=== PATIENT | male | born 1935 | race Caucasian/White ===

== ENCOUNTER 2018-08-11 09:03 | Emergency (ER) | payer OTHER, MEDICARE ==
--- NOTE | 2018-08-11 09:59 | EDM.PDOC ---
ED HPI GENERAL MEDICAL PROBLEM - General Chief Complaint: Cardiovascular Problem Stated Complaint: HIGH BLOOD PRESSURE Time Seen by Provider: 08/11/18 09:12 Source of Information: Reports: Patient, Family (), RN Notes Reviewed History Limitations: Reports: No Limitations - History of Present Illness INITIAL COMMENTS - FREE TEXT/NARRATIVE: The patient is concerned about his blood pressure. Ordinarily, his blood pressure is well controlled, in the 120s, however, he found his blood pressure to be elevated this morning around 190/89. He states that he checks his blood pressure most mornings, and sometimes up to 3 times a day. He has a history of hypertension, but is compliant with his antihypertensive medications. The patient acknowledges that this morning he was coughing and had a runny nose. He reports, not quite dizziness, but a sense of disequilibrium, with some sinus congestion. No recent fever. He denies having any pain, including a headache. No blurry vision. No neuro symptoms, such as tingling, numbness, or weakness. No recent chest pain or palpitations. He has had dyspnea on exertion for years, but no dyspnea at rest. No recent abdominal pain. No recent constipation, diarrhea, or urinary symptoms, although he does have a slow urinary stream due to BPH. Here in the ED, the patient's initial blood pressure was 198/82, however, it dropped as low as 173/76 during my interview, without treatment. [facility] - Related Data Allergies Allergy/AdvReac Type Severity Reaction Status Date / Time No Known Allergies Allergy Verified 08/11/18 09:13 Home Meds: Home Meds Carvedilol 12.5 mg PO DAILY 08/14/15 [History] Clopidogrel [Plavix] 75 mg PO DAILY 08/14/15 [History] Isosorbide Mononitrate [Isosorbide Mononitrate ER] 60 mg PO DAILY 08/14/15 [ History] hydroCHLOROthiazide [Hydrochlorothiazide] 12.5 mg PO DAILY 08/14/15 [History] Acetaminophen [Acetaminophen Extra Strength] 500 mg PO Q6H PRN 08/11/18 [History ] atorvaSTATin Calcium [Atorvastatin Calcium] 20 mg PO BEDTIME 08/11/18 [History] Past Medical History Cardiovascular History: Reports: Aneurysm (AAA, s/p aorto-iliac graft), CAD, High Cholesterol, Hypertension Gastrointestinal History: Reports: GERD Genitourinary History: Reports: BPH Musculoskeletal History: Reports: Arthritis, Fracture (mandible, left clavicle) Oncologic (Cancer) History: Reports: Basal Cell Carcinoma - Past Surgical History HEENT Surgical History: Reports: Tonsillectomy, Other (See Below) (Mandible wiring. Bilateral blepharoptosis surgery.) Cardiovascular Surgical History: Reports: Carotid Stents (x 1), Vascular Surgery (Aortoiliac graft for AAA) GI Surgical History: Reports: Hernia, Abdominal (paraumbilical), Hernia, Inguinal (bilateral) Social & Family History - Tobacco Use Years of Tobacco use: 44 Packs/Tins Daily: 2 Month/Year Tobacco Last Used: Quit 1988 - Caffeine Use Caffeine Use: Reports: Coffee - Alcohol Use Alcohol Use History: No Date/Time of Last Drink Comment: Quit drinking 1988 - Recreational Drug Use Recreational Drug Use: No - Living Situation & Occupation Living situation: Reports: , with Spouse Occupation: Retired ED ROS GENERAL - Review of Systems Review Of Systems: ROS reveals no pertinent complaints other than HPI. ED EXAM, GENERAL - Physical Exam Exam: See Below Exam Limited By: No Limitations General Appearance: Alert, WD/WN, No Apparent Distress Eye Exam: Bilateral Eye: EOMI, Normal Inspection Ears: Normal External Exam, Hearing Loss Nose: Normal Inspection, Normal Mucosa, No Blood Throat/Mouth: Normal Inspection, Normal Lips, Normal Voice, No Airway Compromise Head: Atraumatic, Normocephalic Neck: Normal Inspection, Full Range of Motion Respiratory/Chest: No Respiratory Distress, Lungs Clear, Normal Breath Sounds, No Accessory Muscle Use Cardiovascular: Normal Peripheral Pulses, Regular Rate, Rhythm, No Gallop, No JVD, No Murmur, No Rub Peripheral Pulses: 4+: Radial (L), Radial (R) GI/Abdominal: Normal Bowel Sounds, Soft, Non-Tender, No Organomegaly, No Distention, No Abnormal Bruit, No Mass (Male) Exam: Deferred Rectal (Males) Exam: Deferred Back Exam: Normal Inspection, Full Range of Motion, NT Extremities: Normal Inspection, Normal Range of Motion, Normal Capillary Refill Neurological: Alert, Oriented, CN II-XII Intact, Normal Cognition, No Motor/ Sensory Deficits Psychiatric: Normal Affect Skin Exam: Warm, Dry, Intact, Normal Color, No Rash Course - Vital Signs Last Recorded V/S: Last Vital Signs Temp 36.4 C 08/11/18 09:09 Pulse 65 08/11/18 10:15 Resp 16 08/11/18 10:15 BP 171/80 H 08/11/18 10:15 Pulse Ox 95 08/11/18 10:15 - Re-Assessments/Exams Free Text/Narrative Re-Assessment/Exam: 08/11/18 09:59 Without treatment, the patient's blood pressure has decreased to 173/76. He has no abnormal neurologic findings, and no emergent treatment of his blood pressure is indicated. The concept of hypertension and how to properly measure it was discussed at length with the patient and his . The patient's blood pressure is ordinarily well controlled, however, he has had spuriously elevated blood pressure today, associated with a (likely) URI. I suspect that the patient's dizziness is due to ethmoid sinusitis. A nasal decongestant spray is an option, however, it may cause more problems than it solves. With respect to the patient's epistaxis, I found no obvious visible vessels, but based on his history, his nosebleeds are anterior/venous. I explained to him how to treat epistaxis, and also recommended that he apply a thin smear of Vaseline petroleum jelly on each side of his nasal septum, especially at bedtime. Departure - Departure Time of Disposition: 10:02 Disposition: Home, Self-Care 01 Condition: Good Clinical Impression: Elevated blood pressure reading Instructions: Hypertension, Atin-[id number] Referrals: Claudine Bhandari MD [Primary Care Provider] - Forms: ED Department Discharge Additional Instructions: You were seen in the emergency room for a concern about elevated blood pressure. Without treatment, your blood pressure decreased to 173/76, well below a level that would require emergency medical treatment. As discussed, current guidelines recommend that you only check your blood pressure 2-3 times a week. It is important that you measure your blood pressure only under restful conditions, meaning that you are sitting quietly for at least 5, and preferably 15 minutes, you are not in pain, you are not sick, and you are not anxious. Write the numbers down in a log, and show the log to your doctor when you see her. She can then determine if any changes in your blood pressure medications are needed. As discussed, if you get a nosebleed, sit upright, tilt your head slightly forward, and pinch your nostrils tightly for 10-15 minutes. Do not stuff something up your nose. If this does not stop your nosebleed, please return to the ER for evaluation. As discussed, we also recommend that you apply a thin smear of Vaseline petroleum jelly to the middle parts of each nostril, especially at bedtime. If any other problems, please do not hesitate to return to the ER.
[2018-08-11 10:19] VITALS: BP 171/80
== END 2018-08-11 10:17 | disposition home or self-care (01) ==
LOC: JD.ED 09:03
DX: I10 Essential (primary) hypertension (principal); Z79.899 Other long term (current) drug therapy; Z87.891 Personal history of nicotine dependence
CPT/HCPCS: 99283

== ENCOUNTER 2019-01-14 09:28 | Emergency (ER) | payer OTHER, MEDICARE ==
[2019-01-14] MEDS ORDERED: Sodium Chloride 0.9% 10 ML Syringe FLUSH PRN (09:42)
[2019-01-14 09:50] VITALS: BP 134/74
--- NOTE | 2019-01-14 10:06 | CT ---
Head CT Technique: Multiple axial sections through the brain were obtained. Intravenous contrast was not utilized. Comparison: No prior intracranial imaging is seen. Findings: Areas of edema are noted within the left side of the brain. Findings could represent cytotoxic edema from intracranial metastatic disease. There is diminished density noted within the subcortical and periventricular white matter which is compatible with small vessel ischemic demyelination change. Effacement of the lateral left ventricle is noted. Mild midline shift is seen by about 4.4 mm. No intracranial hemorrhage is seen. Bone window settings were reviewed which show the visualized sinuses to appear clear. Mild mucosal thickening is seen within the inferior left mastoid sinus which is most likely incidental. No acute calvarial abnormality is seen. Impression: 1. Areas of edema within the left side of the brain which are suspicious for cytotoxic edema from intracranial metastasis. Contrast-enhanced MRI would be helpful to confirm. 2. Findings cause midline shift and effacement of the lateral left ventricle. 3. Small vessel ischemic demyelination change is also noted. Diagnostic code #9
--- NOTE | 2019-01-14 10:27 | CR ---
Chest: Portable view of the chest was obtained. Comparison: No prior chest x-ray. Heart size is normal. Tortuous thoracic aorta is seen with atherosclerotic calcification. Aortic stent is noted within the abdomen. Lungs are clear with no acute parenchymal change. Degenerative change is noted within both shoulders. Scoliosis is noted within the spine. Impression: 1. Incidental findings. Nothing acute is appreciated. Diagnostic code #2
--- NOTE | 2019-01-14 10:44 | EDM.PDOC ---
ED HPI GENERAL MEDICAL PROBLEM - General Chief Complaint: Neuro Symptoms/Deficits Stated Complaint: STROKE SYMPTOMS Time Seen by Provider: 01/14/19 09:42 Source of Information: Reports: Family History Limitations: Reports: Altered Mental Status - History of Present Illness INITIAL COMMENTS - FREE TEXT/NARRATIVE: The patient presents with his and son for trouble walking, talking and eating. This has been an ongoing problem since October and maybe before that. His says that he has gotten much worse the past 3 days. He can say a few words but he has some slurred speech. He needs 2 to 3 people to help him walk anywhere. He is having trouble swallowing and his has to mash up his food. He is incontinent of stool and urine at times. His thinks he is having TIAs. She noticed some problems before October and brought him to his doctor. Nothing was really found at that time and he got progressively worse. He refused to go back to see the doctor. He has right sided facial droop. His says that his right arm and leg are more weak then the left arm and leg at times. He has a cough. He has no fever, chills, chest pain, shortness of breath, abdominal pain, nausea or vomiting. Onset: Gradual Duration: Week(s): (Since October) Improves with: Reports: None Worsens with: Reports: None Associated Symptoms: Reports: Cough. Denies: Chest Pain, Fever/Chills, Headaches, Nausea/Vomiting, Shortness of Breath Generalized Pain Score (Numeric/FACES): 4 - Related Data Allergies Allergy/AdvReac Type Severity Reaction Status Date / Time No Known Allergies Allergy Verified 01/14/19 09:50 Home Meds: Home Meds Carvedilol 12.5 mg PO DAILY 08/14/15 [History] Clopidogrel [Plavix] 75 mg PO DAILY 08/14/15 [History] Isosorbide Mononitrate [Isosorbide Mononitrate ER] 60 mg PO DAILY 08/14/15 [ History] hydroCHLOROthiazide [Hydrochlorothiazide] 12.5 mg PO DAILY 08/14/15 [History] Acetaminophen [Acetaminophen Extra Strength] 500 mg PO Q6H PRN 08/11/18 [History ] atorvaSTATin Calcium [Atorvastatin Calcium] 20 mg PO BEDTIME 08/11/18 [History] Past Medical History Cardiovascular History: Reports: Aneurysm, CAD, High Cholesterol, Hypertension Gastrointestinal History: Reports: GERD Genitourinary History: Reports: BPH Musculoskeletal History: Reports: Arthritis, Fracture Oncologic (Cancer) History: Reports: Basal Cell Carcinoma - Past Surgical History HEENT Surgical History: Reports: Tonsillectomy, Other (See Below) Cardiovascular Surgical History: Reports: Carotid Stents, Vascular Surgery GI Surgical History: Reports: Hernia, Abdominal, Hernia, Inguinal Social & Family History - Tobacco Use Smoking Status *Q: Former Smoker Used Tobacco, but Quit: Yes Month/Year Tobacco Last Used: unknown - Caffeine Use Caffeine Use: Reports: Coffee - Living Situation & Occupation Living situation: Reports: , with Spouse Occupation: Retired ED ROS GENERAL - Review of Systems Review Of Systems: See Below Constitutional: Reports: No Symptoms HEENT: Reports: No Symptoms Respiratory: Reports: No Symptoms Cardiovascular: Reports: No Symptoms Endocrine: Reports: No Symptoms GI/Abdominal: Reports: No Symptoms : Reports: No Symptoms Musculoskeletal: Reports: No Symptoms Neurological: Reports: Weakness, Other (Trouble talking). Denies: Headache ED EXAM, NEURO - Physical Exam Exam: See Below Exam Limited By: Altered Mental Status General Appearance: Alert, No Apparent Distress Ears: Normal External Exam Nose: Normal Inspection Throat/Mouth: Normal Inspection Head Exam: Atraumatic, Normocephalic Neck: Normal Inspection Respiratory/Chest: No Respiratory Distress, Rhonchi (Mild) Cardiovascular: Regular Rate, Rhythm, No Edema, No Murmur GI/Abdominal: Soft, Non-Tender, No Organomegaly, No Mass Neurological: Alert, Other (Slurred speech and he does not make any sense when he speaks. He has right sided facial droop. He has generalized weakness and he cannot follow some commands.) Back Exam: Normal Inspection Extremities: Normal Inspection EKG INTERPRETATION EKG Date: 01/14/19 Time: 10:10 Rhythm: NSR Rate (Beats/Min): 96 [place]: Normal P-Wave: Present QRS: Normal ST-T: Normal QT: Normal Course - Vital Signs Last Recorded V/S: Last Vital Signs Temp 97.2 F 01/14/19 09:42 Pulse 78 01/14/19 09:42 Resp 16 01/14/19 09:42 BP 134/74 01/14/19 09:42 Pulse Ox 95 01/14/19 09:42 - Orders/Labs/Meds Orders: Active Orders 24 hr Category Date Time Status Cardiac Monitoring [RC] . DIRECTED Care 01/14/19 09:42 Active EKG Documentation Completion [RC] STAT Care 01/14/19 09:43 Active Peripheral IV Care [RC] . DIRECTED Care 01/14/19 09:42 Active UA W/MICROSCOPIC [URIN] Stat Lab 01/14/19 09:42 Ordered Sodium Chloride 0.9% [Saline Flush] Med 01/14/19 11:00 Active 10 ml FLUSH ASDIRECTED Sodium Chloride 0.9% [Saline Flush] Med 01/14/19 09:42 Active 10 ml FLUSH ASDIRECTED PRN Peripheral IV Insertion Adult [OM.PC] Stat Oth 01/14/19 09:42 Ordered Medication Orders Sodium Chloride (Saline Flush) 10 ml FLUSH ASDIRECTED PRN PRN Reason: Keep Vein Open Last Admin: 01/14/19 10:16 Dose: 10 ml Sodium Chloride (Saline Flush) 10 ml FLUSH ASDIRECTED ZAHRAA Last Admin: 01/14/19 11:51 Dose: 10 ml Labs: Laboratory Tests 01/14/19 01/14/19 01/14/19 Range/Units 09:38 10:05 10:05 WBC 8.56 (4.23-9.07) K/mm3 RBC 4.48 L (4.63-6.08) M/mm3 Hgb 13.4 L (13.7-17.5) gm/L Hct 40.4 (40.1-51.0) % MCV 90.2 (79.0-92.2) fl MCH 29.9 (25.7-32.2) pg MCHC 33.2 (32.2-35.5) g/dl RDW Std Deviation 45.0 H (35.1-43.9) fL Plt Count 228 (163-337) K/mm3 MPV 9.6 (9.4-12.3) fl Neut % (Auto) 79.7 H (34.0-67.9) % Lymph % (Auto) 11.0 L (21.8-53.1) % [place] % (Auto) 7.8 (5.3-12.2) % Eos % (Auto) 1.1 (0.8-7.0) Baso % (Auto) 0.2 (0.1-1.2) % Neut # (Auto) 6.82 H (1.78-5.38) K/mm3 Lymph # (Auto) 0.94 L (1.32-3.57) K/mm3 [place] # (Auto) 0.67 (0.30-0.82) K/mm3 Eos # (Auto) 0.09 (0.04-0.54) K/mm3 Baso # (Auto) 0.02 (0.01-0.08) K/mm3 Sodium 142 (136-145) mEq/L Potassium 3.6 (3.5-5.1) mEq/L Chloride 106 (98-107) mEq/L Carbon Dioxide 27 (21-32) mEq/L Anion Gap 12.6 (5-15) BUN 27 H (7-18) mg/dL Creatinine 1.4 H (0.7-1.3) mg/dL Est Cr Clr Drug Dosing TNP Estimated GFR (MDRD) 48 (>60) mL/min BUN/Creatinine Ratio 19.3 H (14-18) Glucose 122 H (83-115) mg/dL POC Glucose 121 H (83-110) mg/dL Calcium 10.0 (8.5-10.1) mg/dL Magnesium 1.8 (1.8-2.4) mg/dl Total Bilirubin 1.1 H (0.2-1.0) mg/dL AST 18 (15-37) U/L ALT 18 (16-63) U/L Alkaline Phosphatase 67 (46-116) U/L Troponin I 0.074 H* (0.00-0.056) ng/mL C-Reactive Protein 5.1 H* (<1.0) mg/dL Total Protein 6.3 L (6.4-8.2) g/dl Albumin 3.1 L (3.4-5.0) g/dl Globulin 3.2 gm/dL Albumin/Globulin Ratio 1.0 (1-2) Meds: Medications Generic Name Dose Route Start Last Admin Trade Name Freq PRN Reason Stop Dose Admin Sodium Chloride 10 ml 01/14/19 09:42 01/14/19 10:16 Saline Flush FLUSH 10 ml ASDIRECTED PRN Administration Keep Vein Open Sodium Chloride 10 ml 01/14/19 11:00 01/14/19 11:51 Saline Flush FLUSH 10 ml ASDIRECTED ZAHRAA Administration Discontinued Medications Generic Name Dose Route Start Last Admin Trade Name Aleyda PRN Reason Stop Dose Admin Gadobenate Dimeglumine 15 ml 01/14/19 10:59 01/14/19 11:51 Multihance IVPUSH 01/14/19 11:00 15 ml ONETIME ONE Administration - Re-Assessments/Exams Free Text/Narrative Re-Assessment/Exam: 01/14/19 10:48 A stroke alert was called. The last time known well was in October. 01/14/19 13:57 His EKG shows a NSR with no acute changes. His CT shows areas of edema within the left side of the brain which are suspicious for cytotoxic edema from intracranial metastasis. Contrast-enhanced MRI would be helpful to confirm. Findings cause midline shift and effacement fo the lateral left ventricle. Small vessel ischemic demyelination change is also noted. I have ordered an MRI. His CBC looks good. His creatinine is elevated at 1.4. His glucose is elevated at 122. His troponin is elevated at 0.074. His CRP is elevated at 5.1. His MRI shows large heterogeneously enhancing mass within the left temporal posterior frontal and parietal region. This is most likely due to primary brain neoplasm. Second smaller area of adjacent enhancement is seen which is most likely due to localized spread. Senescent change as noted above. Mild midline shift and effacement of the lateral left ventricle. I called [facility] in [place] and talked with Dr Vaughn the neurosurgeon and he accepted the patient and he says the prognosis is not good. I let his family know. I also talked with the hospitalist Dr French and she also accepted the patient. Departure - Departure Time of Disposition: 14:05 Disposition: DC/Tfer to Acute Hospital 02 Condition: Poor Clinical Impression: Brain tumor, Weakness Dysphagia Qualifiers: Dysphagia type: unspecified Qualified Code(s): R13.10 - Dysphagia, unspecified - Discharge Information Referrals: Claudine Bhandari MD [Primary Care Provider] - Forms: ED Department Discharge - My Orders Last 24 Hours: My Active Orders 01/14/19 09:42 Cardiac Monitoring [RC] . DIRECTED Peripheral IV Care [RC] . DIRECTED UA W/MICROSCOPIC [URIN] Stat Sodium Chloride 0.9% [Saline Flush] 10 ml FLUSH ASDIRECTED PRN Peripheral IV Insertion Adult [OM.PC] Stat 01/14/19 09:43 EKG Documentation Completion [RC] STAT 01/14/19 11:00 Sodium Chloride 0.9% [Saline Flush] 10 ml FLUSH ASDIRECTED - Assessment/Plan Last 24 Hours: My Active Orders 01/14/19 09:42 Cardiac Monitoring [RC] . DIRECTED Peripheral IV Care [RC] . DIRECTED UA W/MICROSCOPIC [URIN] Stat Sodium Chloride 0.9% [Saline Flush] 10 ml FLUSH ASDIRECTED PRN Peripheral IV Insertion Adult [OM.PC] Stat 01/14/19 09:43 EKG Documentation Completion [RC] STAT 01/14/19 11:00 Sodium Chloride 0.9% [Saline Flush] 10 ml FLUSH ASDIRECTED
[2019-01-14] MEDS ORDERED: Gadobenate Dimeglumine 529 MG/ML 15 ML SDV IVPUSH ONE (10:59)
[2019-01-14] MEDS ORDERED: Sodium Chloride 0.9% 10 ML Syringe FLUSH SCH (11:00)
--- NOTE | 2019-01-14 12:07 | MR ---
MRI brain (without and with intravenous contrast) Findings: Heterogeneously enhancing mass is identified within the left temporal, posterior frontal and parietal region. This mass has a craniocaudal measurement of 6.0 cm, transverse measurement of 5.0 cm and AP dimension of 5.5 cm. Mass shows surrounding edema. There is mild effacement of the lateral left ventricle and mild midline shift by about 4.3 mm. Small second area of enhancement is seen slightly posterior and lateral to the main mass. This second area of enhancement measures about 1.0 cm. Findings most likely represent primary neoplasm of the brain with small adjacent second area of spread. No other areas of abnormal enhancement are seen. Ventricles along with basal cisterns and sulci over the convexities are mildly prominent. Normal signal void is seen within the major cerebral arteries within the skull base. Mild areas of small vessel ischemic demyelination change is seen within the white matter. Impression: 1. Large heterogeneously enhancing mass within the left temporal, posterior frontal and parietal region. This is most likely due to primary brain neoplasm. Second smaller area of adjacent enhancement is seen which is most likely due to localized spread. 2. Senescent change as noted above. 3. Mild midline shift and effacement of the lateral left ventricle. Note: Neurosurgical referral is recommended. Diagnostic code #9
== END 2019-01-14 14:25 ==
LOC: JD.ED 09:28
DX: D49.6 Neoplasm of unspecified behavior of brain (principal); R13.10 Dysphagia, unspecified; I25.10 Atherosclerotic heart disease of native coronary artery without angina pectoris; I10 Essential (primary) hypertension; M19.90 Unspecified osteoarthritis, unspecified site; Z98.890 Other specified postprocedural states; Z87.891 Personal history of nicotine dependence
CPT/HCPCS: 36415; 70450; 70553; 71045; 80053; 82962; 83735; 84484; 85025; 86140; 93005; 99285; A9577; 93010; 99284